=== PATIENT | female | born 1980 | race Caucasian/White ===

== ENCOUNTER 2022-01-26 20:59 | Emergency (ER) | payer BC, OTHER ==
[~2022-01-26] VITALS: Ht 160 cm; Wt 83.9 kg
[2022-01-26] MEDS ORDERED: OMEPRAZOLE20 MG PO (21:27)
[2022-01-26] MEDS ORDERED: WELLBUTRIN XL300 MG PO (21:27)
[2022-01-26] MEDS ORDERED: MELATONIN10 M2 PO (21:28)
[2022-01-26] MEDS ORDERED: PREDNISONE20 MG PO (22:53)
[2022-01-26] MEDS ORDERED: VENTOLIN HFA18 GM INH (22:53)
--- NOTE | 2022-01-27 07:15 | EKG ---
[facility] [address] [place], [place] [address] Signed Normal sinus rhythm with sinus arrhythmia Low voltage QRS Cannot rule out Anterior infarct , age undetermined Abnormal ECG No previous ECGs available Confirmed by SRIKANTH LAY MD ([id number]) on 01/27/2022 7:15:35 AM Electronically Signed By: SRIKANTH LAY MD 01/27/2215 PATIENT NAME: NARINDER GUILLERMOLINE Nick Electrocardiogram DATE OF : 84 PHYSICIAN: SRIKANTH LAY MD REPORT #: [id number] REPORT IS CONFIDENTIAL AND NOT TO BE RELEASED WITHOUT AUTHORIZATION
== END 2022-01-26 22:59 | disposition home or self-care (01) ==
LOC: ED 20:59
DX: J20.8 Acute bronchitis due to other specified organisms (principal); Z20.822 Contact with and (suspected) exposure to COVID-19
CPT/HCPCS: 36415; 71046; 80053; 81001; 84484; 85025; 87502; 93005; 93010; 94640; 96374; 99284-25; C9803; J2930; U0003

== ENCOUNTER 2022-02-18 13:31 | Emergency (ER) | payer BC, OTHER ==
[~2022-02-18] VITALS: Ht 160 cm; Wt 83.9 kg
--- NOTE | ~2022-02-18 | STRESS ---
[facility] [address] [place] [address] Draft DATE OF STUDY: 02/18/2022 PROCEDURE: Exercise stress ECG report. FINDINGS: ECG changes noted during stress = none. No angina or chest pain noted during stress. Cueva treadmill score = 10, which confers a low risk. Overall, normal maximal exercise stress ECG. MD POOL HaneyP/MODL /[id number] PATIENT NAME: RAUL GUILLERMO Stress test DATE OF : 84 PHYSICIAN: NICHOL JUAN MD REPORT #: [id number] REPORT IS CONFIDENTIAL AND NOT TO BE RELEASED WITHOUT AUTHORIZATION
[~2022-02-18 13:31] MED LIST: MELATONIN10 M2 PO; OMEPRAZOLE20 MG PO; PREDNISONE20 MG PO; VENTOLIN HFA18 GM INH; WELLBUTRIN XL300 MG PO
--- OUTSIDE RECORDS SUMMARY | 2022-02-18 13:34 | XMS ---
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 Thomas has no Care Guidelines for this patient. [facility] MO[facility] NOTE: Visits indicate total known visits. [facility]ACKING (12 MO.) [facility] [place] [facility] COMPLAINT: - HEADACHE 01/26/2022 21:00 [facility] TYPE: Emergency COMPLAINT: - SHORTNESS OF BREATH DIAGNOSES: - Cough, unspecified - Contact with and (suspected) exposure to COVID-19 - Acute bronchitis due to other specified organisms INPATIENT VISIT TRACKING (12 MO.) No inpatient visits to display in this time frame [id number]
== END 2022-02-18 20:00 | disposition home or self-care (01) ==
LOC: ED 13:31
DX: R51.9 Headache, unspecified (principal); Z79.899 Other long term (current) drug therapy
CPT/HCPCS: 96361; 96374; 96375; 99283-25; J1200; J1885; J2765; J7030